=== PATIENT | female | born 1985 | race Hispanic/Latino ===

== ENCOUNTER 2017-10-03 07:08 | Emergency (ER) | payer SELFPAY ==
[2017-10-03] MEDS ORDERED: Benztropine 1 MG TAB PO SCH (08:00)
[2017-10-03 08:08] LABS: #Eosinphils 0.2 thou/uL (0.0-0.7); #Lymphocytes 1.6 thou/uL (1.20-3.40); #Monocytes 0.7 thou/uL (0.11-0.59); #Neutrophils 12.8 thou/uL (1.40-6.50); %Basophils 0.1 % (0.0-1.0); %Eosinophils 1.3 % (0.0-10.0); %Lymphocytes 10.1 % (21.0-51.0); %Monocytes 4.8 % (0.0-10.0); %Neutrophils 83.6 % (42.0-75.0); Mean Corpuscular HGB CONC 35.7 g/dL (32.0-36.0); Mean Corpuscular Hemoglobin 31.9 pg (27.0-31.0); Mean Corpuscular Volume 89.1 fL (78.0-98.0); Mean Platelet Volume 8.2 fL (7.4-10.4); Platelet Count 236 thou/uL (130-400); Red Blood Cell (RBC) Count 4.08 mill/uL (4.20-5.40); White Blood Cell (WBC) Count 15.3 thou/uL (4.8-10.8)
[2017-10-03 08:21] LABS: ALT (SGPT) 16 U/L (8-55); AST (SGOT) 23 U/L (5-34); Acetaminophen Less than 6.0 mcg/mL (10.0-30.0); Albumin 4.1 g/dL (3.5-5.0); Alcohol Less than 10 mg/dL (Less than 10); Alkaline Phosphatase 82 U/L (40-150); Anion Gap 14 mmol/L (10-20); BUN (Urea Nitrogen) 8 mg/dL (7.0-18.7); Bilirubin, Total 0.6 mg/dL (0.2-1.2); Calc. Creatinine Clearance 0 mL/min (70-130); Calcium 8.8 mg/dL (7.8-10.44); Carbon Dioxide 21 mmol/L (22-29); Chloride 106 mmol/L (98-107); Estimated GFR-MDRD 88; Globulin 3.2 g/dL (2.4-3.5); Glucose 165 mg/dL (70-105); Potassium 3.1 mmol/L (3.5-5.1); Protein, Total 7.3 g/dL (6.0-8.3); Salicylate Less than 8.0 mg/dL (15.0-30.0); Sodium 138 mmol/L (136-145)
[2017-10-03 08:46] LABS: Bilirubin Negative (Negative); Blood, Urine Negative (Negative); Clarity CLEAR (Clear); Glucose, Urine (Dipstick) Negative (Negative); Leukocyte Negative (Negative); Nitrite Negative (Negative); Protein, Urine (Dipstick) Negative (Neg-Trace); Urobilinogen 0.2 mg/dL (0.2-1.0); pH, Urine 6.5 (5.0-9.0)
[2017-10-03 08:49] LABS: Specific Gravity, Urine 1.003 (1.002-1.036)
[2017-10-03 09:38] LABS: Amphetamine Not Detected (NotDetected); Barbiturates Screen Not Detected (NotDetected); Benzodiazepine Screen Not Detected (NotDetected); Cocaine Metabolite Screen Not Detected (NotDetected); Medtox Control Line Valid? VALID (VALID); Medtox Reader # READER 1; Methadone Not Detected (NotDetected); Methamphetamine Not Detected (NotDetected); Opiate Screen Not Detected (NotDetected); Oxycodone Screen Not Detected (NotDetected); Phencyclidine (PCP) Not Detected (NotDetected); THC/Cannabinoid Screen Not Detected (NotDetected); Tricyclic Screen Not Detected (NotDetected)
== END 2017-10-03 10:08 | disposition home or self-care (01) ==
LOC: ERS 07:08
DX: G47.00 Insomnia, unspecified (principal); T43.595A Adverse effect of other antipsychotics and neuroleptics, initial encounter; F41.9 Anxiety disorder, unspecified; F32.9 Major depressive disorder, single episode, unspecified; F25.9 Schizoaffective disorder, unspecified; F17.210 Nicotine dependence, cigarettes, uncomplicated; Z79.899 Other long term (current) drug therapy
CPT/HCPCS: 36415; 80053; 80306; 80307; 81003; 84443; 85025; 99283

== ENCOUNTER 2018-03-07 23:12 | Emergency (ER) | payer SELFPAY ==
[2018-03-08] MEDS ORDERED: hydrOXYzine Pamoate 25 mg Capsule ONE (00:08)
[2018-03-08] MEDS ORDERED: Lorazepam 1 MG TAB ONE (00:24)
== END 2018-03-08 00:28 | disposition home or self-care (01) ==
LOC: ERS 23:12
DX: H55.89 Other irregular eye movements (principal); T50.905A Adverse effect of unspecified drugs, medicaments and biological substances, initial encounter; F43.9 Reaction to severe stress, unspecified; F41.9 Anxiety disorder, unspecified; F32.9 Major depressive disorder, single episode, unspecified; F20.9 Schizophrenia, unspecified; F17.210 Nicotine dependence, cigarettes, uncomplicated; Z79.899 Other long term (current) drug therapy
CPT/HCPCS: 99283; Q0177

== ENCOUNTER 2019-12-30 13:54 | Outpatient (CLI) | payer MEDICAID, MEDICARE, OTHER ==
[~2019-12-30 13:54] MED LIST: Iopamidol 370 76% 100 ML VIAL ONE
--- NOTE | 2019-12-30 14:52 | CT ---
CT BRAIN WITH AND WITHOUT CONTRAST: DATE: 12/30/2019 HISTORY: 34-year-old female with hyperprolactinemia TECHNIQUE: Precontrast scan of the brain. IV injection of iodinated contrast media. Postcontrast scan of brain. FINDINGS: There is no evidence of acute intra-axial or extra-axial hemorrhage. There is no midline shift or any other mass effect. There is no extra-axial fluid collection. The ventricles are normal in size and configuration. There is no abnormal enhancement or mass. The tympanomastoid cavities, and the upper p ortions of the paranasal sinuses included in these images, are grossly clear. Calvarium is intact. No obvious large mass in the suprasellar cistern. IMPRESSION: 1. Normal standard CT of brain with and without contrast. 2. Please note that for hyperprolactinemia, the general recommendation is an MRI of the brain and gina [place], with and without contrast. A CT cannot evaluate for pituitary microadenoma.
== END 2019-12-30 13:55 | disposition home or self-care (01) ==
LOC: BICCT 13:54
PROVIDERS: ATTEND Nurse Practitioner Women's Health
DX: E22.1 Hyperprolactinemia (principal)
CPT/HCPCS: 70470; Q9967